=== PATIENT | female | born 1965 | race Caucasian/White ===

== ENCOUNTER → 2025-01-04 | Outpatient (CLI) | payer BC, OTHER ==
--- NOTE | 2025-01-04 09:04 | USB ---
Reason for Exam: Clinical finding. Risk Values: Danielle 5 year model risk: 0.9%. NCI Lifetime model risk: 4.9%. Technique: Method: Targeted. Findings: The upper outer quadrant of the left breast, the axilla of the left breast and the retroareolar of the left breast were scanned. Targeted ultrasound upper outer quadrant. No solid or cystic masses are identified. No suspicious axillary adenopathy. Overall Assessment: Negative, BI-RAD 1 Management: Screening Mammogram of both breasts in 4 months. Return to routine follow-up. Manage patient's symptoms clinically. A clinical breast exam by your physician is recommended on an annual basis and results should be correlated with mammographic findings. This exam should not preclude additional follow-up of suspicious palpable abnormalities. Results were given to the patient verbally at the time of exam. [facility], , 01/04/2025 8:18 AM. Electronically signed and approved by: Herbert Reynolds M.D.
== END | disposition home or self-care (01) ==
LOC: RADUSWWP 07:40
PROVIDERS: ATTEND Family Medicine
DX: N64.4 Mastodynia (principal)